=== PATIENT | female | born 1950 | race Caucasian/White ===

== ENCOUNTER 2017-03-19 13:20 | Outpatient (CLI) | payer OTHER ==
--- NOTE | 2017-03-19 14:42 | DIAGNOSTIC IMAGING REPORT ---
PROCEDURE: MG UNILATERAL DIAG-RT W/CAD INDICATION: Follow-up focal asymmetry right breast. TECHNIQUE: True lateral digital view of the right breast. In addition, spot compression CC and MLO views were obtained of the lateral right breast (region of clinical concern). COMPARISON: Comparison is made to screening mammogram from [facility] imaging (02/16/2017), and prior mammogram studies from [facility] (2015, 11/22/2014). FINDINGS: MAMMOGRAM: Computer-aided detection applied. Moderately dense parenchymal pattern. No evidence of mass or architectural distortion. IMPRESSION: 1. Negative mammogram. No evidence of mass or architectural distortion. 2. Resume routine screening schedule (January 2018). 3. Findings discussed with the patient. RESULT CODE: 1- Negative. A. A negative report should not delay biopsy if a dominant or clinically suspicious mass is present. 10-15% of cancers are not identified by x-ray. B. A negative report may reinforce clinical impression. C. Adenosis and dense breasts may obscure an underlying neoplasm. D. False positive reports average 6-10%. E.. A yearly screening mammogram is recommended. A reminder letter will be scheduled.
--- NOTE | 2017-03-19 14:42 | DIAGNOSTIC IMAGING REPORT ---
PROCEDURE: MG UNILATERAL DIAG-RT W/CAD INDICATION: Follow-up focal asymmetry right breast. TECHNIQUE: True lateral digital view of the right breast. In addition, spot compression CC and MLO views were obtained of the lateral right breast (region of clinical concern). COMPARISON: Comparison is made to screening mammogram from [facility] imaging (02/16/2017), and prior mammogram studies from [facility] (2015, 11/22/2014). FINDINGS: MAMMOGRAM: Computer-aided detection applied. Moderately dense parenchymal pattern. No evidence of mass or architectural distortion. IMPRESSION: 1. Negative mammogram. No evidence of mass or architectural distortion. 2. Resume routine screening schedule (January 2018). 3. Findings discussed with the patient. RESULT CODE: 1- Negative. A. A negative report should not delay biopsy if a dominant or clinically suspicious mass is present. 10-15% of cancers are not identified by x-ray. B. A negative report may reinforce clinical impression. C. Adenosis and dense breasts may obscure an underlying neoplasm. D. False positive reports average 6-10%. E.. A yearly screening mammogram is recommended. A reminder letter will be scheduled.
== END 2017-03-19 23:00 ==
LOC: MAM SRH 13:20
DX: N64.89 Other specified disorders of breast (principal)